=== PATIENT | male | born 1965 | race Caucasian/White ===

== ENCOUNTER → 2021-11-03 10:50 | Outpatient (CLI) | payer OTHER, SELFPAY ==
[2021-11-03 11:53] LABS: COVID19 -Nasal RAPID Negative (Negative)
== END ==
PROVIDERS: Referring Provider Orthopaedic Surgery Foot and Ankle Surgery; Visit Provider Orthopaedic Surgery Foot and Ankle Surgery
DX: Z20.822 Contact with and (suspected) exposure to COVID-19 (principal)
CPT/HCPCS: 87635; C9803

== ENCOUNTER 2021-11-04 09:39 | Day surgery (SDC) | payer OTHER, SELFPAY ==
[2021-11-04 09:52] VITALS: BP 133/87; PULSE 81; RESP 16; TEMP 36.7; O2SAT 97; BMI 31.9
--- NOTE | 2021-11-04 11:34 | PM.PREOP ---
Pre-operative Note COVID-19 COVID-19 status: Negative Interval Note History & Physical reviewed/Exam performed by Physician: Yes Changes to H&P: No
--- NOTE | 2021-11-04 11:35 | P.HP_ITS ---
History of Present Illness History of Present Illness Date Patient Seen: 11/04/21 Time Patient Seen: 11:36 Chief complaint: SDC Narrative: 55-year-old gentleman referred from the [place] for right knee pain. 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 States he may have twisted it. Endorses pain and mechanical symptoms and decreased range of motion. Endorses locking and catching. No relief with prolonged conservative course. Pain has not been relieved by oral anti-inflammatories. MRI demonstrates bucket-handle meniscus tear, medial. He denies any issues with his knee prior to this event March. He does have type 2 diabetes controlled on med for min and Jardiance not aware of his hemoglobin A1c but was drawn at the [place] recently. Denies heart or lung problems no allergies to medications Patient History Medical History Arthritis Depression Diabetes DJD (degenerative joint disease) HLD (hyperlipidemia) HTN (hypertension) ANGELIA (obstructive sleep apnea) Family & Social History Social History: household members spouse Tobacco & Substance use: Tobacco type cigarettes Smoking Status Former smoker alcohol intake current alcohol intake frequency a few times a week Substance Use Type does not use Meds Home Medications and Allergies Home Medications Medication Instructions Recorded Confirmed Type Jardiance 25 mg PO DAILY 11/03/21 11/04/21 History amlodipine 10 mg PO DAILY 11/03/21 11/04/21 History atorvastatin 48 mg PO DAILY 11/03/21 11/04/21 History losartan 100 mg tablet 100 mg PO DAILY 11/04/21 11/04/21 History metformin 500 mg tablet 500 mg PO DAILY 11/04/21 11/04/21 History omeprazole 20 mg capsule,delayed 20 mg PO DAILY 11/04/21 11/04/21 History release Allergies Allergy/AdvReac Type Severity Reaction Status Date / Time etodolac AdvReac Verified 11/04/21 10:05 lisinopril AdvReac Verified 11/04/21 10:05 Review of Systems Review of Systems Narrative: Ten point review of systems negative except for musculoskeletal complaints as noted ROS: Yes All systems reviewed with the patient and are negative except as otherwise documented Exam Vital Signs (past 8 hours): - 11/04/21 09:52 Temperature 98.1 F Pulse Rate 81 Respiratory Rate 16 Blood Pressure 133/87 Pulse Oximetry 97 Oxygen Delivery Method Room Air Oxygen Delivery Method Room Air Narrative Exam Narrative: General exam alert oriented male no acute distress. Fully alert oriented. CV exam regular rate and rhythm. Respiratory lungs clear to auscultation bilaterally. Gait swelling bearing without assistive device. Right lower extremity shows grossly normal alignment strength and stability with trace swe lling no atrophy. A trace effusion. 5/5 dorsiflexion plantar flexion sensation intact to light touch in all distributions. No rashes. Palpable distal pulses. Knee range of motion 0-95 stable to varus and valgus stress testing. Negative Carlos's. Medial joint line tenderness positive Grey medial compartment Objective Imaging MRI scan right knee: Radiologist's impression: Radialis impression DA MRI August 01 06/27/2021 bucket-handle medial meniscus tear posterior horn with flipped fragment intercondylar notch. Mild arthritis predominantly involving medial compartment with mild chondromalacia. Mild reactive bone edema the medial compartment minimal articular cartilage fraying and patellofemoral compartments small knee joint effusion. Nonspecific edema in Hoffa's fat pad Assessment & Plan Assessment and plan (1) Meniscus, medial, bucket handle tear, old: Status: Acute Assessment & Plan narrative: Patient has a bucket-handle right medial meniscus tear with mechanical symptoms. He has failed conservative treatment. Indicated for arthroscopic debridement partial meniscectomy. Discussed that this will not cure arthritis but help with the mechanical symptoms. Pain has been ongoing for nearly 6 months. It has taken him a while to get in to see an orthopedic surgeon. Discussed arthroscopic surgeries and trimming of the meniscal fragment that is flipped into a joint this will help with the locking symptoms but may not relieve all of his pain. General arthritic pain is unpredictable ray from arthroscopic surgery may progress or become more symptomatic after surgery bleeding foot ventral requirement of additional nonoperative or operative care of the knee arthritis. He understands and agrees with the plan. He would like to proceed with arthroscopic partial medial before his bucket-handle medial meniscus tear. He will be weightbear as tolerated after the procedure and wean from assistive devices as soon as possible. No history of blood clots. No antibiotic allergies. The risks and benefits of the procedure have been discussed with the patient even opportunity to ask questions. The risks of surgery include but are not limited to infection, malunion, nonunion, persistence of pain, damage to nerves and blood vessels, posttraumatic arthritis, DVT, PE, cardiopulmonary complications and . The patient expressed a thorough understanding of the risks and benefits of surgery and has elected to proceed. Consent was signed COVID-19 COVID-19 status: Negative Time Spent With Patient Time with patient: less than 30 minutes Critical Care time: I spent a total of [] minutes of critical care time on this patient's care today; this time is exclusive of procedural time. Quality VTE Deep Vein Thrombosis/Pulmonary Embolism Present on Admission: No
[2021-11-04] MEDS: LACTATED RINGERS 1,000 ML 42 ML IV (11:37)
[2021-11-04] MEDS: CEFAZOLIN 2 GM/20 ML SYRINGE IV (12:17)
--- NOTE | 2021-11-04 12:37 | SUR.OPER ---
Supine on padded OR bed, head on pillow, arms secured on padded arm boards at <90 degrees abduction, legs uncrossed, safety belt at lower torso, tape over blanket over left lower leg. Right thigh arthroscopic padded lateral post in place and right leg in control of the surgeon.
[2021-11-04] MEDS: BUPIVACAINE 0.25% (PF) 30 ML, EPINEPHrine 0.15 MG INJ (12:41)
[2021-11-04] MEDS: SODIUM CHLORIDE IRRIG SOLUTION 3,000 ML, EPINEPHrine 1 MG IRR (12:48)
[2021-11-04 13:12] VITALS: BP 119/66; PULSE 82; RESP 16; TEMP 36.6; O2SAT 98
[2021-11-04 13:17] VITALS: BP 133/79; PULSE 91; RESP 12; O2SAT 98
[2021-11-04 13:22] VITALS: BP 135/91; PULSE 78; RESP 14; O2SAT 97
--- NOTE | 2021-11-04 13:23 | PM.OP.1 ---
Operative Date/Time/Diagnoses Date of procedure: 11/04/21 Time of procedure: 12:20 Pre-op diagnosis: Bucket-handle tear medial meniscus right knee Arthritis of the right knee Post-op diagnosis: other (Bucket-handle tear medial meniscus right knee, arthritis right knee, tear lateral meniscus right knee, partial tear ACL, plica) Procedure & Clinicians Procedure: Arthroscopic debridement of the right knee with partial medial and lateral meniscectomies Chondroplasty, debridement excision plica right knee Same procedure as scheduled: Yes Indications: Patient is a 55-year-old male with a long history of knee pain and mechanical symptoms of the 6 months after an injury in March of 2021. Failed conservative treatment. MRI demonstrated medial meniscus tear with buckle handle component in the intercondylar notch. There were minimal arthritic changes. Patient was indicated for arthroscopic debridement of the right knee and partial meniscectomies as indicated. The risks and benefits of the procedure have been discussed with the patient even opportunity to ask questions. The risks of surgery include but are not limited to infection, progression of arthritis, persistence of pain, damage to nerves and blood vessels, , DVT, PE, cardiopulmonary complications and . The patient expressed a thorough understanding of the risks and benefits of surgery and has elected to proceed. Consent was signed. Surgeon: Jocelyn Roper Click Yes if Unassisted: Yes Anesthesia Type: General and Local Operative Notes Findings: Suprapatellar pouch : Plica, was debrided Patella femoral grade 2 changes, focal Medial gutter normal Medial compartment degenerative medial meniscus tear diminutive posterior horn with separate fragment into the intercondylar notch consistent with a bucket-handle meniscus tear grade 2 3 changes tibial plateau and medial femoral condyle, medial meniscus tear was debrided back to a stable base Intercondylar notch: Partial-thickness ACL tear, meniscal fragment as previously described, normal partially visualized PCL. Torn fibers of the ACL were debrided Lateral compartment cartilage intact. Small posterior meniscal tear debrided back to a stable base Lateral gutter normal Closure Type: primary Specimen(s): none sent Estimated Blood Loss (mL): 5 Blood products transfused: none Tourniquet time (min): 34 Procedure in detail: Patient was seen in the preoperative area site of surgery marked informed consent confirmed. The patient back to the operating room by the anesthesia team the in supine on the operative table. General anesthetic was administered. All bony prominences well padded. Well-padded thigh tourniquet was placed on the operative extremity. The right lower extremities prepped and draped in standard sterile fashion a formal time-out procedure was performed confirming the patient's side site of surgery administration of appropriate preoperative antibiotics. All were in agreement. Attention turned to the right leg the Esmarch was used for exsanguination the tourniquet was elevated to 250 mmHg and stayed elevated for 34 minutes. Scalpel used to establish the anterolateral portal in the standard fashion through the skin with a probe used to penetrate the joint the scope was then placed into the notch and then advanced in the suprapatellar pouch with the knee in extension and then diagnostic arthroscopy was carried out in the standard fashion with findings above. Then under direct visualization medial portal was established. Lateral portal was used as the visualization portal medial portal as a working portal and the shaver was introduced. The anterior plica was removed as well as the flipped medial meniscal fragment. Then the shaver was placed into the medial compartment and the posterior medial meniscus tear was debrided with alternating shaver and biters back to a stable base. Next attention was turned to the intercondylar notch. The partial-thickness ACL tear was debrided preserving the non torn fibers. Then the probe and shaver were placed into the lateral compartment and the knee was brought into the figure 4 position. A posterior lateral meniscus tear was identified and debrided back to a stable base. The remainder of the lateral meniscus and lateral compartment was in good condition. Once the debridement was completed excess fluid was removed from the knee then 10 cc of Marcaine was injected for local anesthetic. Instruments removed. Portals were closed with 3-0 nylon suture. Tourniquet was released. Dressing was placed with Xeroform gauze and David wrap. The drapes removed patient was woken from anesthesia and taken to recovery room in good condition. There no immediate complications from this procedure. Complications: none Post-operative Condition: stable Disposition: PACU Plan for aftercare: Weightbear as tolerated. Start range of motion immediately. May remove the dressings and just place Band-Aids over this sutures on day 3 and may shower on day 3. Take aspirin for 2 weeks or until full weight-bearing to prevent blood clots. Follow-up in 2 weeks.
[2021-11-04] MEDS: OXYCODONE/ACETAMINOPHEN 5/325 TABLET 1 TAB PO (13:26)
[2021-11-04] MEDS: ONDANSETRON 4 MG/2 ML INJ IV (13:26)
[2021-11-04 13:33] VITALS: BP 136/87; PULSE 87; RESP 11; O2SAT 96
--- NOTE | 2021-11-04 13:56 | SUR.PHASEII ---
Discharge instructions reviewed with pt and he verbalized understanding.
== END 2021-11-04 13:57 | disposition home or self-care (01) ==
PROVIDERS: Referring Provider Orthopaedic Surgery Foot and Ankle Surgery; Visit Provider Orthopaedic Surgery Foot and Ankle Surgery
PROC: (CPT 29870; principal; 2021-11-04 11:15)
DX: S83.211A Bucket-handle tear of medial meniscus, current injury, right knee, initial encounter (principal); M67.51 Plica syndrome, right knee; S83.511A Sprain of anterior cruciate ligament of right knee, initial encounter; S83.281A Other tear of lateral meniscus, current injury, right knee, initial encounter; M17.11 Unilateral primary osteoarthritis, right knee; E11.9 Type 2 diabetes mellitus without complications; Z79.84 Long term (current) use of oral hypoglycemic drugs; I10 Essential (primary) hypertension; G47.33 Obstructive sleep apnea (adult) (pediatric); K21.9 Gastro-esophageal reflux disease without esophagitis
CPT/HCPCS: 29880; J0171; J0690; J1100; J2405; J2704; J3010